=== PATIENT | male | born 1995 | race Caucasian/White ===

== ENCOUNTER → 2020-10-28 | Outpatient (CLI) | payer OTHER | LOC: HEART 5 11:30 | DX: R00.1 Bradycardia, unspecified (principal); R42 Dizziness and giddiness ==

== ENCOUNTER 2021-09-18 06:18 | Emergency (ER) | payer OTHER ==
[2021-09-18 06:47] LABS: HEMOGLOBIN 15.1 gm/dl (14.0-17.5); RED BLOOD COUNT 4.77 M/UL (4.20-5.50); WHITE BLOOD COUNT 5.2 K/UL (4.5-11.0)
[2021-09-18 07:28] LABS: BUN/CREATININE RATIO 14 (0-10)
== END 2021-09-18 08:28 | disposition home or self-care (01) ==
LOC: ER1 06:18
PROVIDERS: Physician Assistant
DX: U07.1 COVID-19 (principal); F17.210 Nicotine dependence, cigarettes, uncomplicated
CPT/HCPCS: 0240U; 71045; 80053; 85025; 96374; 96375; 99284; J1885; J2405